=== PATIENT | male | born 1975 | race Caucasian/White ===

== ENCOUNTER 2016-08-07 08:35 | Emergency (ER) | payer MEDICAID ==
[~2016-08-07] VITALS: Wt 90.0 kg
[2016-08-07] MEDS ORDERED: KETOROLAC 15 MG INJ IM STA (09:15)
[2016-08-07] MEDS ORDERED: NAPR-260 PO (09:20)
[2016-08-07] MEDS ORDERED: ORPH100T PO (09:20)
--- NOTE | 2016-08-07 09:37 | ERD ---
ER Documentation Chief Complaint Date/Time DATE: 08/07/16 TIME: 09:33 Chief Complaint left lower back pain for 3 days. no trauma. no dysuria or hematuria HPI Patient is a 41-year-old male who presents to the ED with left lower back pain for 3 days. 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 He denies any trauma or injury. He denies radiation of pain. He denies pain down his legs. Denies numbness or tingling. He has not taken anything for his pain. Denies urinary symptoms. Denies abdominal pain, nausea, vomiting or diarrhea. Denies fever or chills. Denies difficulty walking or weakness. Denies chest pain, cough, shortness of breath or difficulty breathing. ROS All systems reviewed and are negative except as per history of present illness. Medications Home Meds Active Scripts Orphenadrine Citrate (Norflex) 100 Mg Tablet.sa, 100 MG PO BID for 14 Days, TAB.SA Prov:SAUL HAMILTON PA-C 08/07/16 Naproxen* (Naprosyn*) 500 Mg Tablet, 500 MG PO BID Y for PAIN AND/OR INFLAMMATION, #30 TAB Prov:SAUL HAMILTON PA-C 08/07/16 Allergies Allergies: Coded Allergies: No Known Allergy (Unverified , 08/07/16) PMhx/Soc Medical and Surgical Hx: pt denies Surgical Hx History of Surgery: No Anesthesia Reaction: No Hx Neurological Disorder: Yes (convulsions) Hx Respiratory Disorders: No Hx Cardiac Disorders: No Hx Psychiatric Problems: No Hx Miscellaneous Medical Probl: No Hx Alcohol Use: No Hx Substance Use: No Hx Tobacco Use: No Smoking Status: Never smoker FmHx Family History: No coronary disease, No diabetes, No other Physical Exam Vitals Vital Signs Date Time Temp Pulse Resp B/P Pulse Ox O2 Delivery O2 Flow Rate FiO2 08/07/16 08:38 98.0 75 20 140/82 98 Physical Exam GENERAL: Well-developed, well-nourished male. Appears in no acute distress. HEAD: Normocephalic, atraumatic. LUNG: Clear to auscultation bilaterally. No rhonchi, wheezing, rales or coarse breath sounds. HEART: Regular rate and rhythm. No murmurs, rubs or gallops. ABDOMEN: No scars, ecchymosis or rashes noted. Soft, nontender, and nondistended. Positive bowel sounds in all four quadrants. No rebound tenderness , no guarding. (-) McBurneys point tenderness. No CVA tenderness. BACK: No midline tenderness. tenderness to paraspinal muscles and lateral to lumbar spine. no stepoffs or deformities. no erythema or warmth. Range of motion intact. Patient is able to touch his toes. Lateral rotation intact. Reflexes intact. Extremities: Equal pulses bilaterally. No peripheral clubbing, cyanosis or edema. No unilateral leg swelling. NEUROLOGIC: Alert and oriented. Moving all four extremities. 5/5 strength in all extremities. Normal speech. Steady gait. SKIN: Normal color. Warm and dry. No rashes or lesions. Capillary refill < 2 seconds Results 24 hrs Current Medications Medications (Trade) Dose Ordered Sig/Kevin Route PRN Reason Start Time Stop Time Status Last Admin Dose Admin Ketorolac Tromethamine (Toradol) 15 mg ONCE STAT IM 08/07/16 09:15 08/07/16 09:16 DC 08/07/16 09:19 Procedures/MDM ER COURSE: I kept the patient and/or family informed of laboratory and diagnostic imaging results throughout the emergency room course. EKG, MONITORS, & DIAGNOSTIC IMAGING: [place] [id number] Radiology Main Line: [phone] DIAGNOSTIC IMAGING REPORT Patient: SONU LARA : 1975 Age: 41 Sex: M MR #: [id number] DOS: 08/07/16 0915 Ordering MD: SAUL HAMILTON PA-C Location: [facility] Room/Bed: PROCEDURE: Lumbar spine series CLINICAL INDICATION: Back pain TECHNIQUE: Three views of the lumbar spine are available for review COMPARISON: None available FINDINGS: There is mild straightening of the normal lumbar lordosis.. Alignment is otherwise intact. No acute fracture or dislocation is seen. Vertebral body heights are well maintained. Intervertebral disk heights are well maintained. Paraspinous soft tissues are grossly unremarkable. IMPRESSION: 1. Mild nonspecific straightening of the normal lumbar lordosis. 2. Otherwise unremarkable lumbar spine series. RPTAT: KK .Eladio Yanez MD, MD Date Time Electronically viewed and signed by .Eladio Yanez MD, MD on 2016 10:05 .B/ CC: SAUL HAMILTON PA-C MEDICATIONS: Toradol 15. Patient tolerated medication well with no adverse reaction. Patient seen improvement in symptoms. MEDICAL DECISION MAKING: This is a 41-year-old male who presents with low back pain. Vital signs were reviewed. Patient is afebrile. Patient is not hypoxic. Patient is not toxic or ill-appearing. Temperature 98.0, blood pressure 140/82. Patient likely has a muscle strain. Low suspicion for cauda equine syndrome, spinal epidural hematoma, spinal epidural abscess, osteomyelitis, fracture, aortic dissection, AAA, pyelonephritis, nephrolithiasis, septic stone, obstructed stone. Patient does not show signs of saddle anesthesia. I have low suspicion for fracture or dislocation as there are no step-offs or deformities and patient is able to move in all directions. DISCHARGE: At this time, patient is stable for discharge and outpatient management with no new complaints during the ER course. Patient was sent home with Norflex and Naprosyn and a note for work. Patient will be discharged home with instructions to recheck for new or worsening symptoms such as fever, nausea, weakness, LOC and to follow up with primary care in the next 1-2 days. Patient was advised to return to the ER for any new or worsening symptoms. Plan was discussed and patient and/or family understands and agrees. Home instructions were given. Departure Diagnosis: Primary Impression: Back pain Back pain location: low back pain Chronicity: unspecified Back pain laterality: left Sciatica presence: without sciatica Qualified Code: M54.5 - Left-sided low back pain without sciatica, unspecified chronicity Condition: Stable Patient Instructions: Back Pain (Acute Or Chronic) Additional Instructions: Llame al doctor MAANA y alexis alayna JAMES PARA DENTRO DE 1-2 ANNA.Dgale a la secretaria que nosotros le instruimos hacer esta james.Avise o llame si benavides condicin se empeora antes de la james. Regresa aqui si peor o no mejor. SAUL HAMILTON PA-C Aug 07, 2016 09:37
--- NOTE | 2016-08-07 10:05 | RADRPT ---
PROCEDURE: Lumbar spine series CLINICAL INDICATION: Back pain TECHNIQUE: Three views of the lumbar spine are available for review COMPARISON: None available FINDINGS: There is mild straightening of the normal lumbar lordosis.. Alignment is otherwise intact. No acute fracture or dislocation is seen. Vertebral body heights are well maintained. Intervertebral disk h eights are well maintained. Paraspinous soft tissues are grossly unremarkable. IMPRESSION: 1. Mild nonspecific straightening of the normal lumbar lordosis. 2. Otherwise unremarkable lumbar spine series. RPTAT: KK .Eladio Yanez MD, MD Date Time Electronically viewed and signed by .Eladio Yanez MD, on 08/07/2016 10:05 .B/
== END 2016-08-07 10:30 | disposition home or self-care (01) ==
LOC: FTE 08:35
DX: M54.5 Low back pain (principal)
CPT/HCPCS: 72100; 96372; J1885; Z7502

== ENCOUNTER 2017-01-30 04:28 | Emergency (ER) | payer MEDICAID ==
[~2017-01-30] VITALS: Ht 170.2 cm; Wt 93.0 kg
[~2017-01-30 04:28] MED LIST: NAPR-260 PO; ORPH100T PO
[2017-01-30 04:32] VITALS: Ht 170.2 cm; Wt 93.0 kg
[2017-01-30] MEDS ORDERED: HYDR-906 PO (04:49)
[2017-01-30] MEDS ORDERED: IBUP-1542 PO (04:49)
[2017-01-30] MEDS ORDERED: CYCL-319 PO (04:49)
--- NOTE | 2017-01-30 04:57 | ERD ---
ER Documentation Chief Complaint Date/Time DATE: 01/30/17 TIME: 04:55 Chief Complaint neck pain x 2 days HPI 41-year-old male presents to emergency department for complaints of neck pain and upper back pain after working 2 days ago. 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 Patient described the pain as sharp pain, 6/10 scale, accompanied with muscle spasms, worse upon movement. Patient denies any direct trauma on affected area. ROS All systems reviewed and are negative except as per history of present illness. Medications Home Meds Active Scripts Hydrocodone/Acetaminophen (Barnhill 5-325 Tablet) 1 Each Tablet, 1 TAB PO Q6H Y for SEVERE PAIN LEVEL 7-10, #7 TAB Prov:ALEXANDRO ENG DYNAMO TENDER 01/30/17 Cyclobenzaprine Hcl* (Cyclobenzaprine Hcl*) 10 Mg Tablet, 10 MG PO TID, #15 TAB Prov:ALEXANDRO ENG DYNAMO TENDER 01/30/17 Ibuprofen* (Motrin*) 600 Mg Tab, 600 MG PO Q6H Y for PAIN AND OR ELEVATED TEMP, #30 TAB Prov:ALEXANDRO ENG DYNAMO TENDER 01/30/17 Orphenadrine Citrate (Norflex) 100 Mg Tablet.sa, 100 MG PO BID for 14 Days, TAB.SA Prov:SAUL HAMILTON PA-C 08/07/16 Naproxen* (Naprosyn*) 500 Mg Tablet, 500 MG PO BID Y for PAIN AND/OR INFLAMMATION, #30 TAB Prov:SAUL HAMILTON PA-C 08/07/16 Allergies Allergies: Coded Allergies: No Known Allergy (Unverified , 08/07/16) PMhx/Soc Medical and Surgical Hx: pt denies Surgical Hx History of Surgery: No Anesthesia Reaction: No Hx Neurological Disorder: Yes (SEIZURE ) Hx Respiratory Disorders: No Hx Cardiac Disorders: No Hx Psychiatric Problems: No Hx Miscellaneous Medical Probl: Yes (VERTABRAE PROBLEM ) Hx Alcohol Use: Yes Hx Substance Use: No Hx Tobacco Use: No Smoking Status: Never smoker FmHx Family History: No coronary disease, No diabetes, No other Physical Exam Vitals Vital Signs Date Time Temp Pulse Resp B/P Pulse Ox O2 Delivery O2 Flow Rate FiO2 01/30/17 04:32 98.3 69 20 177/99 98 Physical Exam GENERAL: The patient is well developed and appropriate for usual state of health, in no apparent distress. CHEST: Clear to auscultation bilaterally. There are no rales, wheezes or rhonchi. HEART: Regular rate and rhythm. No murmurs, clicks, rubs or gallops. No S3 or S4. ABDOMEN: Soft, nontender and nondistended. Good bowel sounds. No rebound or guarding. No gross peritonitis. No gross organomegaly or masses. No Crowder sign or McBurney point tenderness. BACK: No midline or flank tenderness. Muscle spasms noted in the paraspinal aspect of the cervical and upper thoracic spine. Able to do full range of motion without any restriction. EXTREMITIES: Equal pulses bilaterally. There is no peripheral clubbing, cyanosis or edema. No focal swelling or erythema. Full range of motion. Grossly neurovascularly intact. NEURO: Alert and oriented. Cranial nerves 2-12 intact. Motor strength in all 4 extremities with 5/5 strength. Sensation grossly intact. Normal speech and gait. SKIN: There is no apparent rash or petechia. The skin is warm and dry. HEMATOLOGIC AND LYMPHATIC: There is no evidence of excessive bruising or lymphedema. No gross cervical, axillary, or inguinal lymphadenopathy. Procedures/MDM Medical Decision Making: Patient's pain is most likely consistent with a back strain and neck strain. There is no suspicion for neurovascular compromise. Patient has intact sensation and circulation of the affected extremity and distal extremities. There is low suspicion for septic arthritis. Patient does not have any fever. No symptoms of any aortic dissection or aortic aneurysm. Radiology exam not indicated at this time. Disposition: Home. Patient is given prescription for ibuprofen for mild to moderate pain, Barnhill for severe pain, Flexeril for muscle spasm. Patient was advised to avoid heavy lifting , apply warm compresses on affected area. Patient was advised that if symptoms are worse, numbness, tingling, high fever, unable to move joint, worsening symptoms, to return to emergency department immediately. Otherwise, patient is advised to follow up with the primary care doctor in 5-7 days for reevaluation of symptoms. Departure Diagnosis: Primary Impression: Back strain Encounter type: initial encounter Qualified Code: S39.012A - Back strain, initial encounter Additional Impression: Neck strain Encounter type: initial encounter Qualified Code: S16.1XXA - Neck strain, initial encounter Condition: Stable Patient Instructions: Back Pain (Acute Or Chronic), Neck Sprain/Strain ALEXANDRO ENG NP Jan 30, 2017 04:57
== END 2017-01-30 05:00 | disposition home or self-care (01) ==
LOC: FTE 04:28
DX: S39.012A Strain of muscle, fascia and tendon of lower back, initial encounter (principal); S16.1XXA Strain of muscle, fascia and tendon at neck level, initial encounter; X50.0XXA Overexertion from strenuous movement or load, initial encounter; Y92.69 Other specified industrial and construction area as the place of occurrence of the external cause
CPT/HCPCS: 99284